=== PATIENT | female | born 1950 | race African-American/Black ===

== ENCOUNTER 2016-06-27 14:50 | Inpatient (IN) | payer MEDICARE, OTHER ==
--- NOTE | ~2016-06-27 | DS ---
Discharge Summary [facility] [address] [place]. [address] NAME: MOISE JAY : 52 STATUS : DIS IN PAT#: [id number] AGE: 66 ADM/REG DATE : 06/27/16 MR#: [id number] REPORT SERV DATE: 07/06/16 DICTATED BY: CORTEZ SPARKS DATE: 07/05/16 REPORT STATUS : Draft TRANSCRIBED BY: MODGabi DATE: 07/05/16 Data Collection from hospitalization DISCHARGE DIAGNOSES: 1. Sepsis secondary to Escherichia coli urinary tract infection. 2. Escherichia coli ( ), present on admission. 3. Insulin-dependent diabetes mellitus with neuropathy. 4. Chronic kidney disease stage 3/4. 5. Thrombocytosis, likely secondary to reactive process and chronic sacral wound. 6. Chronic sacral pressure ulcer stage IV. CONSULTATIONS: None. PROCEDURES PERFORMED: None. MEDICATIONS: Norvasc 5 mg daily, Arimidex 1 mg daily, Refresh one drop each eye four times daily, aspirin 81 mg daily, Lipitor 10 mg at bedtime, Lioresal 10 mg three times daily, Dulcolax 10 mg rectally every 48 hours, BuSpar 5 mg three times daily, Caltrate 600 mg twice daily, Centrum with minerals one daily, Colace 100 mg twice daily, vitamin D 50,000 units weekly on Fridays, NovoLog insulin sliding scale as directed, Levaquin 750 mg daily x7 days, levothyroxine sodium 25 mcg daily, Prinivil 5 mg daily, melatonin 5 mg at bedtime, Fosamax 70 mg every seven days on Sundays, Reglan 5 mg three times a day, Starlix 120 mg three times daily, Zofran 8 mg daily, MiraLAX powder one packet daily, Lyrica 100 mg twice daily, simethicone 160 mg twice daily, Levemir 20 units at bedtime, Tylenol 650 mg rectally as needed, [place] 5/325 one every four hours as needed, albuterol three times daily as needed, Trulicity 0.75 mg subcutaneously every seven days on Sundays, glucagon 1 mg IM as needed. CONDITION AT DISCHARGE: Upon discharge, she did appear to be doing well and had no complaints. DISPOSITION: She had been discharged with transfer to [facility] to continue an 1800- calorie ADA diet with activity as discussed. She was to continue with physical therapy and occupational therapy. She was also to continue with oxygen at 2 L by nasal cannula. HOSPITAL COURSE: This 66-year-old female was a resident of [facility] Care at [facility] and was transferred to [facility] Emergency Room for altered mental status with possible sepsis. She was evaluated in the emergency room, where she was found to be with encephalopathy and possible urinary tract infection with sepsis. She was therefore admitted, and initial treatment of IV Zosyn was started. Upon admission to the hospital, she had been placed on Zosyn with pharmacy dosing, Zofran 4 mg IV every four hours as needed, morphine 2 mg IV every two hours as needed, Ativan 0.5 mg IV every six hours as needed, as well as electrolyte replacement protocol. Following the day of admission, she was awake and oriented to herself and place and was able to verify information. Her main complaint was abdominal pain, but she denied any associated nausea or vomiting and denied any complaint of chest pain or shortness of breath. On 06/29/2016, she was afebrile and denied any complaints of shortness of breath or chest pain, nausea, vomiting, or abdominal pain. She was continued on supportive care and had been continued on IV antibiotics. On 06/30/2016, she did continue to do well and had no new complaints. She had been evaluated Discharge Summary [address] [address] NAME: MOISE JAY : 52 STATUS : DIS IN PAT#: [id number] AGE: 66 ADM/REG DATE : 06/27/16 MR#: [id number] REPORT SERV DATE: 07/06/16 DICTATED BY: CORTEZ SPARKS DATE: 07/05/16 REPORT STATUS : Draft TRANSCRIBED BY: MODL DATE: 07/05/16 by Physical Therapy. Her urine culture returned with a growth of E coli, and she had been switched to oral antibiotics and was to be monitored. She did remain in stable condition, and on 07/01/2016, she was discharged with the above instructions. Information collected by: Edu WellsISusanneT. I submit the above information as my discharge summary. MED/MODL Cortez Sparks M.D. / [id number] CC: Cortez Sparks M.D. [facility]
--- NOTE | ~2016-06-27 | HP ---
History And Physical [place] [address] [facility] [place]. [address] NAME: MOISE JAY : 52 STATUS : ADM IN [facility]#: [id number] AGE: 66 ADM/REG DATE : 06/27/16 MR#: [id number] REPORT SERV DATE: 06/28/16 DICTATED BY: CORONA CASH DATE: 06/28/16 REPORT STATUS : Draft TRANSCRIBED BY: MODL DATE: 06/28/16 DATE OF ADMISSION: 06/27/2016 CHIEF COMPLAINT: Abdominal pain. HISTORY OF PRESENT ILLNESS: The patient is a 66-year-old female, who is a resident of [facility], was transferred to [facility] ER for altered mental status with possible sepsis. The patient was evaluated in the emergency room, found to be with encephalopathy and possible urinary tract infection with sepsis. Therefore, the patient was admitted and initial treatment of IV Zosyn was started. The patient is now awake and oriented to self and place. Able to verify information obtained from reviewing medical records in [facility]. The patient's main complaint today is abdominal pain, but denies associated nausea or vomiting. Denies any complaint of chest pain or shortness of breath. Nurse at bedside reports the patient did have a bowel movement yesterday and did tolerate her a.m. breakfast. ALLERGIES: METFORMIN. CODE STATUS: POLST form of pain from [facility]. The patient is a full code. MEDICATIONS: Home medications reviewed and reconciliated on admission has included 1. Albuterol inhalation p.r.n. 2. Norvasc 5 mg daily. 3. Anastrozole 1 mg p.o. daily. 4. Artificial Tears 1 drop 4 times a day to each eye. 5. Aspirin 81 mg daily. 6. Lipitor 10 mg at bedtime. 7. Baclofen 10 mg 3 times a day. 8. Fosamax 70 mg t.i.d., only given once a week. 9. Dulcolax 10 mg suppository q.48 hours. 10.BuSpar 5 mg 3 times a day. 11.Calcium with vitamin D 600 mg p.o. twice a day. 12.Rocephin 1 g IM every evening started on 06/26 for 3 days length of therapy. 13.Colace 100 mg twice a day. 14.Trulicity 0.75 mg over 0.5 mL Pen 0.75 mg subcu every 7 days, last given was 06/22/2016. 15.Vitamin D 50,000 units per cap q. weekly. 16.Glucagon 1 mg IM p.r.n. for hypoglycemia. 17.Hydrocodone 5/325 mg every 4 hours p.r.n. 18.NovoLog sliding scale. 19.Lantus 45 units subcu at bedtime. History And Physical [address] [address] NAME: MOISE JAY : 52 STATUS : ADM IN PAT#: [id number] AGE: 66 ADM/REG DATE : 06/27/16 MR#: [id number] REPORT SERV DATE: 06/28/16 DICTATED BY: CORONA CASH DATE: 06/28/16 REPORT STATUS : Draft TRANSCRIBED BY: TERRY DATE: 06/28/16 20.Levothyroxine 25 mcg tablet daily. 21.Lisinopril 5 mg p.o. daily. 22.Melatonin 5 mg p.o. at bedtime. 23.Reglan 5 mg p.o. 3 times a day. 24.Multivitamin daily. 25.Starlix 120 mg p.o. 3 times a day. 26.Zofran 8 mg tablet daily. 27.MiraLAX one pack daily. 28.Lyrica 100 mg p.o. twice a day. 29.Simethicone 80 mg twice a day. PAST MEDICAL HISTORY: Which was verified by the patient includes 1. Multiple sclerosis. 2. Insulin-dependent diabetes with neuropathy. 3. Anxiety and depression. 4. Hypertension. 5. Asthma and COPD. 6. Obstructive sleep apnea. 7. Hyperlipidemia. 8. Overactive bladder with incontinence and with Barrett on admission. 9. History of UTI. 10.Obesity. 11.Hypothyroidism. 12.Constipation. 13.Gastroparesis. 14.Chronic edema of lower extremity. 15.Chronic pressure ulcer, stage IV in the rectum and sacral area. 16.Insomnia. 17.Chronic kidney disease, stage III to IV. 18.Chronic encephalopathy. 19.History of left breast cancer with mastectomy. PAST SURGICAL HISTORY: Includes 1. Hysterectomy, exploratory laparotomy with removal of pelvic cyst. 2. Left hip repair. 3. Colon cyst removed. 4. Oophorectomy in 12/2015. 5. Adrenal mass removed on 03/18/2016. 6. Left breast mastectomy with some nodes. SOCIAL HISTORY: 1. The patient resides at [facility]. Prior to that, she reports she resided at [facility]. 2. The patient reports she is not , no children. Her next closest relatives are her cousin who lives in [facility]. She reports cousins do help with making decision for her. 3. The patient denies any history of tobacco, alcohol, or drug abuse. History And Physical [address] [address] NAME: MOISE JAY : 52 STATUS : ADM IN [facility]#: [id number] AGE: 66 ADM/REG DATE : 06/27/16 MR#: [id number] REPORT SERV DATE: 06/28/16 DICTATED BY: CORONA CASH DATE: 06/28/16 REPORT STATUS : Draft TRANSCRIBED BY: TERRY DATE: 06/28/16 PHYSICAL EXAMINATION: VITAL SIGNS: Blood pressure of 127/58, temperature of 100.2, pulse of 87, respiratory rate 22, and saturation O2 at 99% on 2 L/minute. LABORATORY STUDY: Admission labs on 06/27/2016, include sodium 141, potassium 5.2, chloride 105, CO2 of 26, BUN 63, creatinine of 1.42, glucose of 199, and GFR of 45. WBC of 8.9, hemoglobin 8.7, hematocrit 27.8, and platelets of 532. A.m. laboratory study on 06/27/2016, revealed sodium 145, potassium 5.7, chloride 110, CO2 of 22, BUN 52, creatinine of 1.12, GFR of 60 and glucose of 217, AST 31, bilirubin 0.2, total protein 8.2, ALT 69, albumin 2.2, phosphorus of 409, and procalcitonin 23.89. WBC of 9.9, hemoglobin 9.3, and hematocrit 29.3. PT of 16, INR 1.3, PTT 32.7. Platelets of 504. Urinalysis on 06/27/2016, revealed large leukocytes, positive nitrites, wbc greater than 182, many wbc clumps. Pending urine culture. Chest x-ray on 06/27/2016, was negative for acute process. REVIEW OF SYSTEMS: The patient denies any complaint of her eyesight. Denies any complaint of swallowing. She was able to eat well for breakfast. The patient denies complaint of shortness of breath. Denies complaint of chest pain, nausea, or vomiting. Complained of abdominal pain. The patient reports she has not been moving much in regard to activity. She reports that she is pretty much weak overall. She reports her left arm pain has been going on since her mastectomy. Nurse reports that she has had a BM yesterday and that her specialty bed is pending and currently her wound care is being dressed daily with wet-to-dry and we will have wound care follow the patient to start Thursday with orders already given for wound care. PHYSICAL EXAMINATION: GENERAL: The patient is awake and oriented x2, in no acute distress noted. HEENT: Normocephalic, atraumatic, nonicteric bilaterally. Nasal cannula O2 in use at 2 L/minute. NECK: Obese with no pain on palpation. Dressing noted in left subclavian palpable, unsure if this is a Port-A-Cath but nontender on palpation. Left well-healed scar consistent with history of left mastectomy. CVS: Regular rate and rhythm. Normal S1, S2. No murmurs noted. LUNGS: Clear to auscultation bilaterally. No wheezing. ABDOMEN: Obese. Positive bowel sounds x4 quadrants. Nontender or no guarding on palpation. : Barrett in use, clear yellow urine in bag. Barrett changed on 06/27/2016. Rectal dressing intact with admission. Nurse measuring sacral wound with tunneling stage IV at 7.0 x 3.3 x 2.4, but wound bed clean with deep-wound slightly red. EXTREMITIES: Bilateral upper extremity 1 to 2+ edema, left greater than right. Bilateral lower extremity edema 2+ in bilateral foot. Bilateral pedal pulses present and equal. MUSCULOSKELETAL: Generalized weakness noted throughout. Noted muscle atrophy in the lower extremities. SKIN: Chronic sacral pressure ulcer stage IV as dictated and stage II ulcer to the right buttock measuring 2 x 3 cm and posterior right axilla measuring 4 x 4 with slightly red in History And Physical [address] [place]. [address] NAME: MOISE JAY : 52 STATUS : ADM IN [facility]#: [id number] AGE: 66 ADM/REG DATE : 06/27/16 MR#: [id number] REPORT SERV DATE: 06/28/16 DICTATED BY: CORONA CASH DATE: 06/28/16 REPORT STATUS : Draft TRANSCRIBED BY: TERRY DATE: 06/28/16 surrounding skin. This is per nursing initial assessment. 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 PSYCHIATRIC: The patient is pleasant this morning. ASSESSMENT: 1. Sepsis likely secondary to pyuria. 2. Pyuria with possible catheter associated urinary tract infection with history of urinary tract infection. 3. Altered mental status with baseline chronic encephalopathy-improved. 4. Hyperkalemia. 5. IDDM with neuropathy. 6. Hypertension, essential, controlled. 7. Chronic kidney disease, stage III to IV. 8. Chronic sacral pressure ulcer stage IV. 9. Thrombocytosis likely secondary to reactive process. 10.Anxiety and depression. 11.Gastroparesis. 12.History of multiple sclerosis. 13.History of debility. 14.Elevated liver function tests. PLAN: 1. Continue IV Zosyn as scheduled for now, pharmacy follows. We will monitor renal function. The patient's highest temperature this morning was 100.2, but WBC still within normal limits. We will continue to monitor labs and vital signs. The patient's Barrett was changed last p.m. without any problem. Consider ID consult depending on urine culture if multidrug resistant. The patient is at risk for worsening sepsis. 2. Patient with admission potassium of 5.2, increased this morning to 5.7. We will give a dose of Kayexalate today and follow up labs in a.m. The patient is at risk for cardiac arrhythmia. 3. The patient with history of insulin-dependent diabetes. We will closely monitor blood sugar. So far range of blood sugar is 199 to 217. Continue home med regimen. Continue sliding scale insulin and Accu-Chek q.a.c. and at bedtime. The patient is at risk for DKA. 4. The patient's mental status seems to be back to her baseline. We will continue to monitor. Continue home medications with hold parameters such as her BuSpar and melatonin. The patient is at risk for recurring altered mental status. 5. Patient with history of chronic kidney disease, stage III to IV. Creatinine this morning is 1.12 and BUN decreased from 63 to 52. We will monitor renal function. The patient is at risk for SONIDO. 6. The patient's platelets on admission was 532 and repeat this morning was 504, likely secondary to reactive process. We will continue to monitor. We will ensure the patient on DVT prophylaxis. The patient is at risk for clot formation. 7. We will continue her anxiety and depression home regimen. Place the patient on fall protocol. The patient is at risk for fall. 8. The patient with complaint of abdominal pain could be associated to her not having her History And Physical [address] [place]. [address] NAME: MOISE JAY : 52 STATUS : ADM IN [facility]#: [id number] AGE: 66 ADM/REG DATE : 06/27/16 MR#: [id number] REPORT SERV DATE: 06/28/16 DICTATED BY: CORONA CASH DATE: 06/28/16 REPORT STATUS : Draft TRANSCRIBED BY: MODL DATE: 06/28/16 home med regimen with history of gastroparesis and constipation. We will monitor BM, if worsened, we will consider KUB. The patient currently without any complaint of nausea. The patient is at risk for bowel obstruction with history of constipation. Abdomen exam is benign at this time. 9. The patient's admission liver function was elevated and unsure if this is baseline. She does have p.r.n. hydrocodone, may need to consider changing the pain medications to something without Tylenol. We will monitor lab studies. The patient is at risk for liver insufficiency. 10.The patient is bedbound. We will need to refer the patient to PT and encourage frequent positional changes per q.2 hours. The patient is at risk for worsening skin breakdown or wound. 11.The patient with stage IV pressure ulcer. We will refer to Wound Care. Currently on wet-to-dry dressing until Wound Care evaluates and takes over daily wound care. Monitor for any signs and symptoms of infection. Patient with history of osteomyelitis. We will continue Barrett. The patient is at risk for osteomyelitis. 12.We will continue the patient on p.o. diet of ADA and the patient's code status reviewed, POLST form from [facility] is in chart and the patient remained full code. DICTATED BY: Whit Arndt NP CLP/MODL Corona Cash M.D. / [id number] CC: Cortez Sparks M.D.
[~2016-06-27 14:50] MED LIST: ASAB PO; BION TEARS OPH; BISR PR; BUSPAR5 PO; CENTRUM PO; DETROLLA4 PO; DSS PO; GAS-X80 MG PO; GENERLAC PO; GLUCAGEN SC; GLUCAGON IM; HEPA50006 SC; JANUVIA100 MG PO; KDUR20 PO; KLOR-CON M2020 MEQ PO; L40 PO; LANTUS SC; LEVOTHYROXIN25 MCG PO; LINZESS 145 M145 MCG PO; LIOR10 PO; LIPITOR10 PO; LIQUITEARS OPH; LOTE20 PO; LOTENSIN HCT1 TA2 PO; LYRICA100 MG PO; LYRICA50 PO; MELATONIN5 M1 PO; MIRALAXPKT PO; MYLICON 80 MG T80 MG PO; MYTAB GAS80 MG PO; NORCO1 TA1 PO; NORV5 PO; NOVOLOG SC; NOVOPEN SC; PCET PO; PR12.5 PO; PROVENT20 INH; PROVENTSOL INH; REFRESH OPH; REG5 PO; STARLIX120 PO; SYN.025B PO; ZOCOR20 PO
[2016-06-27 15:24] LABS: ASCORBIC ACID (UR NOT ORDER) NEG (NEG); BILIRUBIN, URINE NEGATIVE (NEG); ER URINALYSIS TAT 0 Hrs 19 Mins; KETONE, URINE NEGATIVE (NEG); LEUKOCYTE ESTERASE(NOT OR LARGE (NEG)
[2016-06-27 15:25] LABS: NITRITE (URINE) POS (NEG); WBC (NOT ORDERED) (RFLEX) > 182 (0-5)
[2016-06-27 16:02] LABS: ALLENS TEST Pos; BE (BASE EXCESS) -2.1 MEQ/L (0 +/- 2.5); CARBOXYHEMOGLOBIN 1.7 % (0-3); DEVICE NC; HCO3 (ACTUAL BICARBONATE) 22.9 MEQ/L (23-27); HEMOBLOGIN CONTENT 9.2 G/DL (12-16); INSTRUMENT SERIAL # 8087; METHEMOGLOBIN 0.3 % (0-3); OPERATOR ID 14335; PCO2 (CO2 TENSION) 40 MMHG (35-45); SAMPLE Arterial; pH 7.37 (7.37-7.43)
[2016-06-27 16:24] LABS: BASOPHILS 0.6 %; BASOPHILS ABSOLUTE 0.05 10/3/uL (0.0-0.16); EOSINOPHILS 4.7 %; EOSINOPHILS ABSOLUTE 0.42 10/3/uL (0.0-0.53); ER CBC TAT 0 Hrs 12 Mins; HEMATOCRIT 27.8 % (36.0-48.0); HEMOGLOBIN 8.7 g/dL (12.0-16.0); IMMATURE GRANULOCYTES 0.4 %; IMMATURE GRANULOCYTES ABSOLUTE 0.04 10/3/uL (0.0-0.11); LYMPHOCYTES 22.4 %; MEAN CORPUS HGB CONC 31.3 g/dL (32.0-36.0); MEAN CORPUSCULAR HEMOGLOB 26.5 pg (26.0-34.0); MEAN PLATELET VOLUME 9.2 fL (9.2-13.0); MONOCYTES 7.1 %; MONOCYTES ABSOLUTE 0.63 10/3/uL (0.21-1.20); NEUTROPHILS 64.8 %; NEUTROPHILS ABSOLUTE 5.79 10/3/uL (2.02-8.40); PLATELET COUNT 532 10/3/uL (150-400); RED CELL COUNT 3.28 10/6/uL (4.0-5.6); WHITE BLOOD CELLS 8.9 10/3/uL (4.5-10.5)
[2016-06-27 16:25] LABS: MANUAL DIFF NO %; MEAN CORPUSCULAR VOLUME 84.8 fL (80-100)
[2016-06-27 16:31] LABS: A/G RATIO 0.4 (0.7-1.9); ALBUMIN 2.2 G/DL (3.5-5.0); ALKALINE PHOSPHATASE 409 U/L (45-117); BUN (BLOOD UREA NITROGEN) 63 MG/DL (6-23); CALCIUM, SERUM 9.1 MG/DL (8.5-10.4); CHLORIDE, SERUM 105 MMOL/L (96-112); CO2 (CARBON DIOXIDE) 26 MMOL/L (24-34); CREATININE 1.42 MG/DL (0.55-1.02); GFR AFRICAN AMERICAN 45 ML/MIN (>=60); GFR NON AFRICAN AMERICAN 39 ML/MIN (>=60); GLUCOSE, SERUM 199 MG/DL (60-99); POTASSIUM, SERUM 5.2 MMOL/L (3.5-5.3); SGOT(AST) 31 U/L (5-40); SGPT(ALT) 69 U/L (5-65); SODIUM, SERUM 141 MMOL/L (135-148); TOTAL BILIRUBIN 0.2 MG/DL (0-1.2); TOTAL PROTEIN 8.2 G/DL (6.0-8.5)
[2016-06-27 16:33] LABS: LACTATE 0.5 MMOL/L (0.3-2.4)
[2016-06-27 16:53] LABS: OVALOCYTES 1+ (3-10/OIF) (0-2/OIF); PLATELET ESTIMATE SLT INC (ADEQUATE); SPHEROCYTES FEW (3-10/OIF); TEARDROP SHAPED RBCS OCC (0-2/OIF)
[2016-06-27 17:10] LABS: PROCALCITONIN 23.89 ng/mL (<0.5)
[2016-06-27] MEDS ORDERED: NORV5 PO (17:47)
[2016-06-27] MEDS ORDERED: TEARS PURE OPH (17:48)
[2016-06-27] MEDS ORDERED: ASAB PO (17:48)
[2016-06-27] MEDS ORDERED: LIOR10 PO (17:48)
[2016-06-27] MEDS ORDERED: LIPITOR10 PO (17:48)
[2016-06-27] MEDS ORDERED: BISR PR (17:49)
[2016-06-27] MEDS ORDERED: LEVOTHYROXIN25 MCG PO (17:49)
[2016-06-27] MEDS ORDERED: BUSPAR5 PO (17:49)
[2016-06-27] MEDS ORDERED: STARLIX120 PO (17:50)
[2016-06-27] MEDS ORDERED: REG5 PO (17:50)
[2016-06-27] MEDS ORDERED: MIRALAX POWDER1 PKT PO (17:50)
[2016-06-27] MEDS ORDERED: MELATONIN5 M1 PO (17:50)
[2016-06-27] MEDS ORDERED: LYRICA100 MG PO (17:51)
[2016-06-27] MEDS ORDERED: NOVOLOG SC (17:51)
[2016-06-27] MEDS ORDERED: ARIMIDEX1 PO (17:51)
[2016-06-27] MEDS ORDERED: PRIN5 PO (17:51)
[2016-06-27] MEDS ORDERED: CENTRUM PO (17:51)
[2016-06-27] MEDS ORDERED: LANTUS SC (17:52)
[2016-06-27] MEDS ORDERED: FOSAMAX70 MG PO (17:52)
[2016-06-27] MEDS ORDERED: ZOFRAN8 PO (17:53)
[2016-06-27] MEDS ORDERED: TRULICITY0.75 MG/0. SQ (17:53)
[2016-06-27] MEDS ORDERED: MYTAB GAS80 MG PO (17:54)
[2016-06-27] MEDS ORDERED: VITD PO (17:54)
[2016-06-27] MEDS ORDERED: DSS PO (17:54)
[2016-06-27] MEDS ORDERED: CALTRA600D PO (17:54)
[2016-06-27] MEDS ORDERED: ROCEPH IM (17:55)
[2016-06-27] MEDS ORDERED: GLUCAGEN IM (17:56)
[2016-06-27] MEDS ORDERED: NORCO1 TA1 PO (17:56)
[2016-06-27] MEDS ORDERED: ALBUTEROL0.083 % INH (17:56)
[2016-06-27 19:43] LABS: INTERNATIONAL NORMAL RATI 1.3 UNITS (-); PARTIAL THROMBO TIME 32.7 SEC (22.5-37.2)
[2016-06-28 05:00] LABS: BASOPHILS 0.6 %; BASOPHILS ABSOLUTE 0.06 10/3/uL (0.0-0.16); EOSINOPHILS 2.4 %; EOSINOPHILS ABSOLUTE 0.24 10/3/uL (0.0-0.53); HEMATOCRIT 29.9 % (36.0-48.0); HEMOGLOBIN 9.3 g/dL (12.0-16.0); IMMATURE GRANULOCYTES 0.9 %; IMMATURE GRANULOCYTES ABSOLUTE 0.09 10/3/uL (0.0-0.11); LYMPHOCYTES 13.5 %; LYMPHOCYTES ABSOLUTE 1.33 10/3/uL (0.67-4.30); MEAN CORPUS HGB CONC 31.1 g/dL (32.0-36.0); MEAN CORPUSCULAR HEMOGLOB 26.1 pg (26.0-34.0); MONOCYTES 6.4 %; MONOCYTES ABSOLUTE 0.63 10/3/uL (0.21-1.20); NEUTROPHILS 76.2 %; NEUTROPHILS ABSOLUTE 7.52 10/3/uL (2.02-8.40); PLATELET COUNT 504 10/3/uL (150-400); RBC DISTRIBUTION WIDTH 14.7 % (12.0-16.0); RED CELL COUNT 3.56 10/6/uL (4.0-5.6); WHITE BLOOD CELLS 9.9 10/3/uL (4.5-10.5)
[2016-06-28 05:02] LABS: MANUAL DIFF NO %
[2016-06-28 05:14] LABS: CALCIUM, SERUM 8.6 MG/DL (8.5-10.4); CHLORIDE, SERUM 110 MMOL/L (96-112); CO2 (CARBON DIOXIDE) 22 MMOL/L (24-34); CREATININE 1.12 MG/DL (0.55-1.02); GFR AFRICAN AMERICAN 60 ML/MIN (>=60); GFR NON AFRICAN AMERICAN 52 ML/MIN (>=60); GLUCOSE, SERUM 217 MG/DL (60-99); POTASSIUM, SERUM 5.7 MMOL/L (3.5-5.3); SODIUM, SERUM 145 MMOL/L (135-148)
[2016-06-28 05:17] LABS: BUN (BLOOD UREA NITROGEN) 52 MG/DL (6-23)
[2016-06-29 06:21] LABS: BASOPHILS 0.4 %; BASOPHILS ABSOLUTE 0.03 10/3/uL (0.0-0.16); EOSINOPHILS 6.5 %; EOSINOPHILS ABSOLUTE 0.49 10/3/uL (0.0-0.53); HEMOGLOBIN 8.3 g/dL (12.0-16.0); IMMATURE GRANULOCYTES 0.3 %; IMMATURE GRANULOCYTES ABSOLUTE 0.02 10/3/uL (0.0-0.11); LYMPHOCYTES 39.4 %; LYMPHOCYTES ABSOLUTE 2.98 10/3/uL (0.67-4.30); MEAN CORPUS HGB CONC 31.8 g/dL (32.0-36.0); MEAN CORPUSCULAR HEMOGLOB 27.1 pg (26.0-34.0); MEAN CORPUSCULAR VOLUME 85.3 fL (80-100); MEAN PLATELET VOLUME 8.6 fL (9.2-13.0); MONOCYTES 5.5 %; MONOCYTES ABSOLUTE 0.42 10/3/uL (0.21-1.20); NEUTROPHILS 47.9 %; NEUTROPHILS ABSOLUTE 3.63 10/3/uL (2.02-8.40); PLATELET COUNT 433 10/3/uL (150-400); RBC DISTRIBUTION WIDTH 14.9 % (12.0-16.0); RED CELL COUNT 3.06 10/6/uL (4.0-5.6); WHITE BLOOD CELLS 7.6 10/3/uL (4.5-10.5)
[2016-06-29 06:23] LABS: HEMATOCRIT 26.1 % (36.0-48.0); MANUAL DIFF NO %
[2016-06-29 06:27] LABS: CALCIUM, SERUM 8.8 MG/DL (8.5-10.4); CHLORIDE, SERUM 106 MMOL/L (96-112); CREATININE 1.08 MG/DL (0.55-1.02); GFR AFRICAN AMERICAN 62 ML/MIN (>=60); GFR NON AFRICAN AMERICAN 54 ML/MIN (>=60); SODIUM, SERUM 143 MMOL/L (135-148)
[2016-06-29 06:28] LABS: BUN (BLOOD UREA NITROGEN) 43 MG/DL (6-23); CO2 (CARBON DIOXIDE) 27 MMOL/L (24-34); GLUCOSE, SERUM 69 MG/DL (60-99); PHOSPHORUS, SERUM 4.4 MG/DL (2.5-4.5); POTASSIUM, SERUM 3.6 MMOL/L (3.5-5.3)
[2016-07-01 06:00] LABS: BASOPHILS 0.6 %; BASOPHILS ABSOLUTE 0.05 10/3/uL (0.0-0.16); EOSINOPHILS 4.8 %; HEMATOCRIT 27.5 % (36.0-48.0); HEMOGLOBIN 8.4 g/dL (12.0-16.0); IMMATURE GRANULOCYTES 1.3 %; IMMATURE GRANULOCYTES ABSOLUTE 0.11 10/3/uL (0.0-0.11); LYMPHOCYTES 39.8 %; LYMPHOCYTES ABSOLUTE 3.28 10/3/uL (0.67-4.30); MEAN CORPUS HGB CONC 30.5 g/dL (32.0-36.0); MEAN CORPUSCULAR HEMOGLOB 25.6 pg (26.0-34.0); MEAN CORPUSCULAR VOLUME 83.8 fL (80-100); MEAN PLATELET VOLUME 8.6 fL (9.2-13.0); MONOCYTES 5.8 %; MONOCYTES ABSOLUTE 0.48 10/3/uL (0.21-1.20); NEUTROPHILS 47.7 %; NEUTROPHILS ABSOLUTE 3.93 10/3/uL (2.02-8.40); PLATELET COUNT 525 10/3/uL (150-400); RBC DISTRIBUTION WIDTH 14.3 % (12.0-16.0); RED CELL COUNT 3.28 10/6/uL (4.0-5.6); WHITE BLOOD CELLS 8.3 10/3/uL (4.5-10.5)
[2016-07-01 06:01] LABS: MANUAL DIFF NO %
[2016-07-01 11:33] LABS: BUN (BLOOD UREA NITROGEN) 22 MG/DL (6-23); CALCIUM, SERUM 9.2 MG/DL (8.5-10.4); CHLORIDE, SERUM 103 MMOL/L (96-112); CO2 (CARBON DIOXIDE) 30 MMOL/L (24-34); CREATININE 0.59 MG/DL (0.55-1.02); GFR AFRICAN AMERICAN 111 ML/MIN (>=60); GFR NON AFRICAN AMERICAN 96 ML/MIN (>=60); POTASSIUM, SERUM 4.9 MMOL/L (3.5-5.3); SODIUM, SERUM 140 MMOL/L (135-148)
[2016-07-01 11:34] LABS: GLUCOSE, SERUM 260 MG/DL (60-99)
[2016-11-23] MEDS ORDERED: LIPITOR10 PO (18:46)
[2016-11-23] MEDS ORDERED: ARIMIDEX1 PO (18:46)
[2016-11-23] MEDS ORDERED: REFRESH OPH SO0.3 ML OPH (18:48)
[2016-11-23] MEDS ORDERED: MULTIVITAMI1 PO (18:49)
[2016-11-23] MEDS ORDERED: VITD PO (18:54)
[2016-11-23] MEDS ORDERED: NOVOLOG SC (18:57)
[2016-11-23] MEDS ORDERED: MELATONIN5 M1 PO (18:58)
[2016-11-23] MEDS ORDERED: MIRALAX POWDER1 PKT PO (19:00)
[2016-11-23] MEDS ORDERED: NORV5 PO (19:02)
[2016-11-23] MEDS ORDERED: ZESTRIL5 MG PO (19:02)
[2016-11-23] MEDS ORDERED: BISR PR (19:03)
[2016-11-23] MEDS ORDERED: DSS PO (19:04)
[2016-11-23] MEDS ORDERED: CALTRA600D PO (19:04)
[2016-11-23] MEDS ORDERED: SYN.025B PO (19:05)
[2016-11-23] MEDS ORDERED: FOSAMAX70 MG PO (19:07)
[2016-11-23] MEDS ORDERED: REG5 PO (19:14)
[2016-11-23] MEDS ORDERED: LYRICA100 MG PO (19:15)
[2016-11-23] MEDS ORDERED: MYTAB GAS80 MG PO (19:15)
[2016-11-23] MEDS ORDERED: STARLIX120 PO (19:15)
[2016-11-23] MEDS ORDERED: BUSPAR5 PO (19:16)
[2016-11-23] MEDS ORDERED: D MANNOSE PO (19:17)
[2016-11-23] MEDS ORDERED: LIOR10 PO (19:18)
[2016-11-23] MEDS ORDERED: FERROUS SULF325 M1 PO (19:18)
[2016-11-23] MEDS ORDERED: TRULICITY1.5 MG/0.5 SQ (19:19)
[2016-11-23] MEDS ORDERED: ASAB PO (19:19)
[2016-11-23] MEDS ORDERED: TOUJEO SC (19:20)
[2016-11-23] MEDS ORDERED: NORCO1 TA1 PO (19:22)
[2016-11-23] MEDS ORDERED: ALBUTEROL0.083 % INH (19:22)
[2016-11-23] MEDS ORDERED: ZOFRAN8 PO (19:23)
[2016-11-23] MEDS ORDERED: [UNRECOGNIZED DRUG - OTHER] SC (19:27)
== END 2016-07-01 18:20 | DRG 698 ==
LOC: ER 14:50 → 4SO 19:42
PROVIDERS: Family Medicine; Nurse Practitioner
DX: T83.518A Infection and inflammatory reaction due to other urinary catheter, initial encounter (principal); A41.51 Sepsis due to Escherichia coli [E. coli]; G93.41 Metabolic encephalopathy; L89.154 Pressure ulcer of sacral region, stage 4; G93.49 Other encephalopathy; K31.84 Gastroparesis; E11.43 Type 2 diabetes mellitus with diabetic autonomic (poly)neuropathy; E11.22 Type 2 diabetes mellitus with diabetic chronic kidney disease; N18.4 Chronic kidney disease, stage 4 (severe); Z99.81 Dependence on supplemental oxygen; R65.20 Severe sepsis without septic shock; N39.0 Urinary tract infection, site not specified; Z68.41 Body mass index [BMI] 40.0-44.9, adult; G35 Multiple sclerosis; Z88.8 Allergy status to other drugs, medicaments and biological substances; Z79.82 Long term (current) use of aspirin; Z79.891 Long term (current) use of opiate analgesic; Z79.4 Long term (current) use of insulin; F41.9 Anxiety disorder, unspecified; F32.9 Major depressive disorder, single episode, unspecified; J44.9 Chronic obstructive pulmonary disease, unspecified; B96.20 Unspecified Escherichia coli [E. coli] as the cause of diseases classified elsewhere; G47.33 Obstructive sleep apnea (adult) (pediatric); Y84.6 Urinary catheterization as the cause of abnormal reaction of the patient, or of later complication, without mention of misadventure at the time of the procedure; E78.5 Hyperlipidemia, unspecified; N32.81 Overactive bladder; Y92.129 Unspecified place in nursing home as the place of occurrence of the external cause; Z87.440 Personal history of urinary (tract) infections; E03.9 Hypothyroidism, unspecified; G47.00 Insomnia, unspecified; I12.9 Hypertensive chronic kidney disease with stage 1 through stage 4 chronic kidney disease, or unspecified chronic kidney disease; Z85.3 Personal history of malignant neoplasm of breast; Z90.12 Acquired absence of left breast and nipple; Z74.01 Bed confinement status; E66.9 Obesity, unspecified; E87.5 Hyperkalemia
CPT/HCPCS: 36600; 71010; 80048; 80053; 81001; 82805; 82962; 83605; 83735; 84100; 84145; 85025; 85610; 85730; 87040; 87077; 87086; 87186; 93005; 97162-GP; 99285; A9270-GY; G8978-CN-GP; G8979-CN-GP; J2543